=== PATIENT | male | born 1945 | race Caucasian/White ===

== ENCOUNTER 2017-12-09 17:42 | Emergency (ER) | payer OTHER ==
[2017-12-09 19:50] LABS: BASOPHILS 0.2 % (0-2); EOSINOPHILS 1.6 % (0-7); HEMATOCRIT 40.4 % (42.0-54.0); HEMOGLOBIN 13.7 g/dL (13.5-17.5); IMMATURE GRANULOCYTES 0.2 % (0-5); LYMPHOCYTES 14.6 % (15-50); MCH 30.2 pg (26.0-34.0); MCHC 33.9 g/dL (31.0-37.0); MCV 89.2 fL (80.0-100.0); MEAN PLATELET VOLUME 9.6 fL (7.4-10.4); MONOCYTES 10.8 % (2-11); NEUTROPHILS 72.6 % (40-80); RBC 4.53 10x6/uL (4.20-6.10); RDW 13.3 % (11.5-14.5); WBC 8.1 10x3/uL (4.8-10.8)
[2017-12-09 19:51] LABS: PLATELET COUNT 213 10x3/uL (130-400)
[2017-12-09 20:09] LABS: ALBUMIN 3.7 g/dL (3.4-5.0); ANION GAP 15.1 mmol/L (8-16); BILIRUBIN - TOTAL 0.45 mg/dL (0.2-1.3); CALCIUM 9.6 mg/dL (8.5-10.1); CARBON DIOXIDE 29.6 mmol/L (21.0-32.0); CREATININE - SERUM 1.1 mg/dL (0.6-1.3); POTASSIUM - SERUM 3.7 mmol/L (3.5-5.1)
== END 2017-12-09 22:23 | disposition home or self-care (01) ==
LOC: D.ER 17:42
PROVIDERS: Family Medicine
DX: L03.115 Cellulitis of right lower limb (principal); I10 Essential (primary) hypertension; F17.200 Nicotine dependence, unspecified, uncomplicated

== ENCOUNTER 2018-03-25 16:40 | Emergency (ER) | payer OTHER | END 2018-03-25 17:32 | disposition left against medical advice (07) | LOC: D.ER 16:40 | DX: R31.9 Hematuria, unspecified (principal) ==

== ENCOUNTER 2018-05-14 18:10 | Emergency (ER) | payer OTHER ==
[~2018-05-14] VITALS: Ht 167.6 cm; Wt 56.8 kg
[2018-05-14 18:28] VITALS: Ht 167.6 cm; Wt 56.8 kg
[2018-05-14] MEDS ORDERED: TIROSINT13 MCG PO (18:30)
[2018-05-14 19:11] LABS: BASOPHILS 0.2 % (0-2); EOSINOPHILS 0.6 % (0-7); HEMATOCRIT 35.4 % (42.0-54.0); HEMOGLOBIN 12.2 g/dL (13.5-17.5); IMMATURE GRANULOCYTES 0.2 % (0-5); MCH 29.9 pg (26.0-34.0); MCHC 34.5 g/dL (31.0-37.0); MCV 86.8 fL (80.0-100.0); MEAN PLATELET VOLUME 9.5 fL (7.4-10.4); MONOCYTES 6.8 % (2-11); NEUTROPHILS 83.2 % (40-80); RBC 4.08 10x6/uL (4.20-6.10); RDW 13.7 % (11.5-14.5); WBC 15.5 10x3/uL (4.8-10.8)
[2018-05-14 19:17] LABS: PLATELET COUNT 295 10x3/uL (130-400)
[2018-05-14 19:23] LABS: ALBUMIN 3.7 g/dL (3.4-5.0); ANION GAP 9.8 mmol/L (8-16); BILIRUBIN - TOTAL 0.3 mg/dL (0.2-1.3); CALCIUM 8.6 mg/dL (8.5-10.1); CARBON DIOXIDE 27.8 mmol/L (21.0-32.0); CREATININE - SERUM 1.1 mg/dL (0.6-1.3); POTASSIUM - SERUM 3.6 mmol/L (3.5-5.1); PROTEIN - SERUM 8.3 g/dL (6.4-8.2)
[2018-05-14 21:05] LABS: APPEARANCE HAZY (CLEAR); BILIRUBIN NEGATIVE (NEGATIVE); COLOR RED (YELLOW); GLUCOSE NEGATIVE (NEGATIVE); KETONE NEGATIVE (NEGATIVE); NITRITE NEGATIVE (NEGATIVE); PROTEIN TRACE mg/dL (NEGATIVE); SPECIFIC GRAVITY 1.005 (1.005-1.020); UROBILINOGEN NORMAL (NORMAL)
[2018-05-14 21:06] LABS: RED CELLS - URINE >50 /hpf (0-5)
[2018-05-14 23:55] VITALS: BP 133/82
== END 2018-05-14 23:56 | disposition home or self-care (01) ==
LOC: D.ER 18:10
PROVIDERS: Family Medicine
DX: T83.9XXA Unspecified complication of genitourinary prosthetic device, implant and graft, initial encounter (principal)